=== PATIENT | female | born 1970 | race Caucasian/White ===

== ENCOUNTER 2020-06-24 12:29 | Inpatient (IN) ==
[2020-06-24] MEDS ORDERED: ETOMIDATE 20 MG/10 ML VIAL IV STA (12:40)
[2020-06-24] MEDS ORDERED: ROCURONIUM 100 MG/10 ML VIAL IV STA (12:40)
[2020-06-24] MEDS ORDERED: FAMOTIDINE 20 MG/2 ML VIAL IV STA (12:47)
[2020-06-24] MEDS ORDERED: DEXAMETHASONE 4 MG/1 ML VIAL IV STA (12:47)
[2020-06-24] MEDS ORDERED: ETOMIDATE 20 MG/10 ML VIAL IV ONE (13:19)
[2020-06-24] MEDS ORDERED: ROCURONIUM 100 MG/10 ML VIAL IV ONE (13:20)
[2020-06-24] MEDS ORDERED: MEROPENEM 1,000 MG in SODIUM CHLORIDE 0.9% 100 ML IV STA (13:37)
[2020-06-24 14:05] LABS: Barbiturates Screen,Urine Negative (Negative); Benzodiazepines Screen,Urine Negative (Negative); Cannabinoid Screen,Urine Negative (Negative); Opiate Screen,Urine Positive (Negative); Phencyclidine Screen,Urine Negative (Negative)
[2020-06-24 14:08] LABS: Apearance,Urine Slightly Hazy (Clear); Bacteria,Urine Many /HPF (Few); Bilirubin,Urine Negative (Negative); Blood, Urine Small mg/dL (Negative); Glucose,Urine (UA) Negative (Negative); Ketones,Urine 5 mg/dL (Negative); Mucus,Urine Occasional /LPF (Occasional); Nitrite,Urine Positive (Negative); Protein,Urine 100 MG/DL; RBC,Urine 18 /HPF (0-4); Urine Color Amber (Yellow); Urine Specific Gravity 1.015 (1.001-1.035); Urine Urobilinogen < 2.0 EU/DL (0.2-1.0); WBC,Urine 9 /HPF (0-6)
[2020-06-24 14:31] LABS: Red Blood Count 4.02 MC/CUMM (3.8-5.5); Red Cell Distribution Width 18.9 % (9.3-17.3)
[2020-06-24 14:51] LABS: Basophils % 0.4 % (0.0-0.8); Hematocrit 34.6 VOL% (35.7-47.0); Immature Granulocytes % 2.4 %; Immature Granulocytes Absolute 0.13 #; Lymphocytes # 1.1 10*3/uL (1.4-4.0); Lymphocytes % 19.6 % (21.3-54.2); Mean Corpuscular HGB Conc 28.9 GM/DL (32-36); Mean Corpuscular Volume 86.1 FL (87-102); Monocytes % 6.5 % (1.7-12.7); NRBC # 0.08 10*3/uL; Neutrophils % 71.1 % (38.7-73.9); Platelet Count 178 T/CUMM (130-400); White Blood Count 5.4 T/CUMM (4-12)
[2020-06-24 15:13] LABS: Band Neutrophils 16 % (0-10); Lymphocytes 18 % (20-55); Metamyelocytes 2 %; Myelocytes 2 %; Polychromasia Few; Segmented Neutrophils 57 % (50-85); Total Cells Counted 100
[2020-06-24 15:14] LABS: ABG Base Excess 2.5 MMOL/L (-2.5-2.5); ABG HCO3 26.6 MMOL/L (20-26); ABG Oxygen Saturation 92.5 % (95-100); ABG PCO2 44.3 MM HG (35-48); ABG PH 7.404 (7.35-7.45); ABG PO2 67.2 MM HG (80-95)
[2020-06-24 15:14] LABS: Anisocytosis Slight; Platelet Estimate Adequate; Schistocytes Slight
[2020-06-24 15:21] LABS: INR 1.1; PT Patient Result 11.3 SECS (9.8-11.9)
[2020-06-24] MEDS ORDERED: SODIUM CHLORIDE 0.9% 250 ML IV ONE (15:27)
[2020-06-24 15:28] LABS: Ferritin 114.9 ng/ml (8-252)
[2020-06-24] MEDS ORDERED: SODIUM CHLORIDE 0.9% 100 ML IV ONE (15:28)
[2020-06-24 16:48] LABS: Albumin 2.3 G/DL (3.4-5.0); Bilirubin,Total 0.8 MG/DL (0.2-1.0); Calcium 7.9 MG/DL (8.5-10.1); Osmolality,Calculated 294.6 MOS/KG (273-304); Total Protein 6.5 G/DL (6.4-8.3)
[2020-06-24] MEDS ORDERED: GLUCAGON 1 MG VIAL IM PRN (17:35)
[2020-06-24] MEDS ORDERED: DEXTROSE 50% 25 GM/50 ML VIAL IV PRN (17:35)
[2020-06-24] MEDS ORDERED: ACETAMINOPHEN 325 MG TABLET ONE (19:00)
[2020-06-24] MEDS ORDERED: ACETAMINOPHEN 325 MG TABLET PO PRN (19:01)
[2020-06-24] MEDS ORDERED: ENOXAPARIN 100 MG/ML SYRINGE SUBCUT SCH (21:00)
[2020-06-24] MEDS ORDERED: ACETAMINOPHEN INJ 1,000 MG in PREMIX 1 EACH IV STA (22:26)
[2020-06-25 04:01] LABS: ABG Base Excess -0.4 MMOL/L (-2.5-2.5); ABG HCO3 24.7 MMOL/L (20-26); ABG Oxygen Saturation 97.1 % (95-100); ABG PCO2 42.4 MM HG (35-48); ABG PH 7.383 (7.35-7.45); ABG PO2 97.5 MM HG (80-95); Allen Test Positive; Pt O2 Delivery Device Ventilator
[2020-06-25 04:30] LABS: Basophils % 0.2 % (0.0-0.8); Hematocrit 39.9 VOL% (35.7-47.0); Immature Granulocytes % 1.2 %; Immature Granulocytes Absolute 0.13 #; Lymphocytes % 8.7 % (21.3-54.2); Mean Corpuscular HGB Conc 28.6 GM/DL (32-36); Mean Corpuscular Volume 86.2 FL (87-102); Mean Platelet Volume 12.9 FL (9.6-12.0); Monocytes % 5.1 % (1.7-12.7); NRBC # 0.09 10*3/uL; Neutrophils % 84.8 % (38.7-73.9); Platelet Count 210 T/CUMM (130-400); Red Blood Count 4.63 MC/CUMM (3.8-5.5); Red Cell Distribution Width 19.1 % (9.3-17.3)
[2020-06-25 04:43] LABS: Hemoglobin 11.4 GM/DL (12.0-16.0)
[2020-06-25 04:49] LABS: Calcium 8.2 MG/DL (8.5-10.1); Osmolality,Calculated 300.6 MOS/KG (273-304)
[2020-06-25 04:54] LABS: Band Neutrophils 15 % (0-10); Lymphocytes 7 % (20-55); Metamyelocytes 2 %; Myelocytes 1 %; Segmented Neutrophils 71 % (50-85); Total Cells Counted 100
[2020-06-25 04:55] LABS: Hypochromasia 1+; Microcytosis 2+; Platelet Estimate Normal
[2020-06-25] MEDS ORDERED: METOPROLOL TARTRATE 5 MG/5 ML VIAL IV ONE (05:00)
[2020-06-25 05:16] LABS: Ferritin 286.4 ng/ml (8-252)
[2020-06-25 05:35] VITALS: BP 130/72
[2020-06-25] MEDS ORDERED: DIGOXIN 0.5 MG/2 ML AMP IV ONE ×2 (08:25→09:30)
[2020-06-25] MEDS ORDERED: AZITHROMYCIN INJ 500 MG in SODIUM CHLORIDE 0.9% 250 ML IV SCH (08:30)
[2020-06-25] MEDS ORDERED: ACETAMINOPHEN 650 MG SUPP RECTAL PRN (08:31)
[2020-06-25] MEDS ORDERED: DIGOXIN 0.5 MG/2 ML AMP ONE (08:31)
[2020-06-25] MEDS ORDERED: ENOXAPARIN 80 MG/0.8 ML SYRINGE SUBCUT SCH (09:00)
[2020-06-25] MEDS: CLINDAMYCIN INJ 600 MG in PREMIX 1 EACH IV SCH ×2 (09:00→17:26)
[2020-06-25] MEDS ORDERED: FAMOTIDINE 8 MG/ML 50 ML/BOTTLE PO SCH (09:00)
[2020-06-25] MEDS ORDERED: DEXAMETHASONE 4 MG/1 ML VIAL IV SCH (09:00)
[2020-06-25] MEDS ORDERED: DESITIN 4OZ/NYSTATIN 15 GRAM MIXTURE PASTE TOP SCH (09:30)
[2020-06-25] MEDS ORDERED: SODIUM CHLORIDE 0.9% 1,000 ML IV ONE (10:28)
[2020-06-25] MEDS ORDERED: LORazepam 2 MG/1 ML VIAL IV PRN (12:28)
[2020-06-25] MEDS ORDERED: MORPHINE 4 MG/1 ML VIAL IV PRN (12:28)
[2020-06-25] MEDS: METOPROLOL TARTRATE 5 MG/5 ML VIAL IV SCH ×2 (13:10→17:26)
== END 2020-06-25 14:00 | disposition expired | DRG 208 ==
LOC: EDUNIT# → EDBD → N.ED 12:29 → SUATTDRO 17:35 → N.EDINP 17:35 → N.CC 18:18
PROVIDERS: ADMIT Internal Medicine Geriatric Medicine; ATTEND Internal Medicine